=== PATIENT | female | born 2000 | race Two or more races ===

== ENCOUNTER 2024-07-27 13:45 | Emergency (ER) | payer OTHER ==
[~2024-07-27] VITALS: Ht 180.3 cm; Wt 124.9 kg
[2024-07-27 13:49] VITALS: TEMP 97
[2024-07-27 14:24] LABS: BASO % 0.4 % (0.0-1.0); EOS # 0.1 10^3/uL (0.0-0.5); EOS % 0.8 % (0.0-3.0); HEMATOCRIT 39.9 % (36.0-47.0); HEMOGLOBIN 13.7 g/dl (12.0-15.5); LYMPH # 3.5 10^3/uL (1.5-5.0); LYMPH % 34.5 % (24.0-44.0); MEAN CORPUSCULAR HEMOGLOBIN 28.5 pg (27.0-33.0); MEAN CORPUSCULAR HGB CONC 34.3 g/dl (32.0-36.5); MONO # 0.6 10^3/uL (0.0-0.8); NEUTROPHILS # 5.9 10^3/uL (1.5-8.5); NEUTROPHILS % 57.8 % (36.0-66.0); PLATELET COUNT, AUTOMATED 238 10^3/uL (150-450); RED BLOOD COUNT 4.81 10^6/uL (4.00-5.40); WHITE BLOOD COUNT 10.3 10^3/uL (4.0-10.0)
[2024-07-27 14:57] LABS: BLOOD UREA NITROGEN 11 MG/DL (9-23); CALCIUM LEVEL 9.3 MG/DL (8.5-10.1); CARBON DIOXIDE LEVEL 22 MMOL/L (20-31); CHLORIDE LEVEL 106 MMOL/L (98-107); CREATININE FOR GFR 0.62 MG/DL (0.55-1.30); GLOMERULAR FILTRATION RATE > 60.0 (>60); GLUCOSE, FASTING 78 MG/DL (60-100); SODIUM LEVEL 136 MMOL/L (136-145)
[2024-07-27 15:39] VITALS: BP 123/66; O2SAT 98
== END 2024-07-27 16:24 | disposition home or self-care (01) ==
LOC: M ED 13:45
DX: O26.851 Spotting complicating pregnancy, first trimester (principal); Z91.018 Allergy to other foods; Z3A.01 Less than 8 weeks gestation of pregnancy

== ENCOUNTER → 2024-07-30 | Outpatient (CLI) | payer OTHER | LOC: M PLALAB 09:36 | PROVIDERS: ATTEND Nurse Practitioner Family | DX: O20.9 Hemorrhage in early pregnancy, unspecified (principal) ==

== ENCOUNTER → 2025-04-16 | Outpatient (REF) | payer OTHER | LOC: M SFHCWAGY 11:14 | PROVIDERS: ATTEND Obstetrics & Gynecology | DX: R82.90 Unspecified abnormal findings in urine (principal) ==

== ENCOUNTER → 2025-04-28 | Outpatient (CLI) | payer OTHER | LOC: M WHC 11:34 | PROVIDERS: ATTEND Family Medicine | DX: Z36.89 Encounter for other specified antenatal screening (principal); Z3A.21 21 weeks gestation of pregnancy ==

== ENCOUNTER → 2025-05-14 | Outpatient (REF) | payer OTHER | LOC: M PLALAB 14:14 | PROVIDERS: ATTEND Nurse Practitioner Family | DX: N89.8 Other specified noninflammatory disorders of vagina (principal) ==

== ENCOUNTER 2025-06-08 15:36 | Emergency (ER) | payer OTHER ==
[2025-06-08] MEDS ORDERED: PRENTAB9 PO (16:12)
[2025-06-08] MEDS ORDERED: ASPI81CH33 PO (16:12)
== END 2025-06-08 16:27 | disposition admitted as inpatient to this hospital (09) ==
LOC: M ED 15:36
DX: Z53.21 Procedure and treatment not carried out due to patient leaving prior to being seen by health care provider (principal)

== ENCOUNTER 2025-06-08 15:43 | Outpatient (CLI) | payer OTHER ==
[~2025-06-08] VITALS: Ht 177.8 cm; Wt 141.3 kg
[2025-06-08 16:00] VITALS: BP 128/65
[2025-06-08] MEDS ORDERED: ASPI81CH33 PO (16:12)
[2025-06-08] MEDS ORDERED: PRENTAB9 PO (16:12)
[2025-06-08] MEDS ORDERED: HOME MED LIST COMPLETE! XX SCH (16:15)
[2025-06-08 16:43] LABS: PLATELET COUNT, AUTOMATED 172 10^3/uL (150-450)
[2025-06-08 17:12] VITALS: BP 131/64
[2025-06-08 17:15] LABS: INR 0.96
[2025-06-08] MEDS: ACETAMINOPHEN 500 MG TAB PO ONE (19:12)
== END 2025-06-08 19:17 | disposition home or self-care (01) ==
LOC: M LDO 15:43
PROVIDERS: ATTEND Advanced Practice Midwife
DX: O26.892 Other specified pregnancy related conditions, second trimester (principal); O99.212 Obesity complicating pregnancy, second trimester; W19.XXXA Unspecified fall, initial encounter; E66.9 Obesity, unspecified; Y92.9 Unspecified place or not applicable; Y93.9 Activity, unspecified; Y99.9 Unspecified external cause status; Z3A.26 26 weeks gestation of pregnancy
CPT/HCPCS: 36415; 59025; 76816; 85027; 85384; 85460; 85610; G0463

== ENCOUNTER → 2025-06-08 | Outpatient (CLI) | payer OTHER ==
[~2025-06-08] MED LIST: ASPI81CH33 PO; PRENTAB9 PO
== END ==
LOC: M WHC 12:59
PROVIDERS: ATTEND Nurse Practitioner Family
DX: O09.292 Supervision of pregnancy with other poor reproductive or obstetric history, second trimester (principal); O99.212 Obesity complicating pregnancy, second trimester; E66.01 Morbid (severe) obesity due to excess calories; Z36.2 Encounter for other antenatal screening follow-up; Z3A.26 26 weeks gestation of pregnancy

== ENCOUNTER → 2025-06-22 | Outpatient (CLI) | payer OTHER ==
[2025-06-22 15:56] LABS: GLUCOSE CHALLENGE TEST 1 HOUR 126 MG/DL (LESS THAN 140)
[2025-06-22 15:58] LABS: PLATELET COUNT, AUTOMATED 198 10^3/uL (150-450)
[2025-06-22 16:31] LABS: HIV 1&2 SCREEN NEGATIVE (NEGATIVE)
[2025-06-22 16:39] LABS: HEPATITIS C VIRUS ABY INDEX 0.02 INDEX (<0.8)
[2025-06-22 17:01] LABS: Trichomonas vaginalis (AMP) NOT DETECTED (NEGATIVE)
[2025-06-22 17:24] LABS: GC DNA AMPLIFICATION NEGATIVE (NEGATIVE)
== END ==
LOC: M PLALAB 10:07
PROVIDERS: ATTEND Nurse Practitioner Family
DX: Z34.80 Encounter for supervision of other normal pregnancy, unspecified trimester (principal)

== ENCOUNTER 2025-08-17 15:49 | Outpatient (CLI) | payer OTHER ==
[~2025-08-17] VITALS: Ht 177.8 cm; Wt 148.2 kg
[2025-08-17] MEDS ORDERED: HOME MED LIST COMPLETE! XX SCH (16:05)
[2025-08-17 16:10] VITALS: BP 119/75
[2025-08-17 17:21] LABS: APPEARANCE, URINE HAZY (CLEAR); BACTERIA, URINE AUTO NEGATIVE (NEGATIVE); BILIRUBIN, URINE AUTO NEGATIVE (NEGATIVE); BLOOD, URINE BLOOD 1+ (NEGATIVE); GLUCOSE, URINE (UA) AUTO 1+ mg/dL (NEGATIVE); KETONE, URINE AUTO NEGATIVE (NEGATIVE); LEUKOCYTE ESTERASE, URINE AUTO NEGATIVE (NEGATIVE); MUCUS, URINE SMALL (NEGATIVE); NITRITE, URINE AUTO NEGATIVE (NEGATIVE); PROTEIN, URINE AUTO NEGATIVE (NEGATIVE); RBC, URINE AUTO 2 /HPF (0-3); SPECIFIC GRAVITY URINE AUTO 1.020 (1.002-1.035); SQUAMOUS EPITHELIAL CELL UR AU 5 /HPF (0-6); UROBILINOGEN, URINE AUTO 0.2 mg/dL (0.0-2.0); WBC, URINE AUTO 2 /HPF (0-3)
== END 2025-08-17 17:50 | disposition home or self-care (01) ==
LOC: M LDO 15:49
PROVIDERS: ATTEND Advanced Practice Midwife
DX: O47.03 False labor before 37 completed weeks of gestation, third trimester (principal); O99.213 Obesity complicating pregnancy, third trimester; O99.820 Streptococcus B carrier state complicating pregnancy; E66.9 Obesity, unspecified; B95.1 Streptococcus, group B, as the cause of diseases classified elsewhere; Z3A.36 36 weeks gestation of pregnancy
CPT/HCPCS: 59025; 81001; 87086; G0463